=== PATIENT | male | born 1990 | race Two or more races ===

== ENCOUNTER 2018-04-22 14:35 | Emergency (ER) | payer OTHER ==
[2018-04-22 14:50] VITALS: BP 104/60; PULSE 81; TEMP 100.6; BMI 39.1
[2018-04-22] MEDS ORDERED: LIDOCAINE HCL 1%, 10 MG/ML (50 mL VIAL) SQ ONE (15:00)
[2018-04-22] MEDS ORDERED: LIDOCAINE HCL/PF 1% SDV 5ML VIAL ONE ×2 (15:11→15:14)
--- NOTE | 2018-04-22 15:42 | PDOC ---
History of Present Illness - General Chief Complaint: Abscess Boil Stated Complaint: PAIN UNDER HISLEFT ARM /FEVER - History of Present Illness Initial Comments: 28-year-old male without comorbidities presents for evaluation of left axillary painful mass 2 days. He has no systemic symptoms. 04/22/18 15:36 Past History - Past Medical History Allergies/Adverse Reactions: Allergies Allergy/AdvReac Type Severity Reaction Status Date / Time No Known Allergies Allergy Verified 04/22/18 14:53 Home Medications: Ambulatory Orders Cephalexin [Keflex] 500 mg PO QID #40 capsule 04/22/18 Cephalexin [Keflex] 500 mg PO QID #40 capsule 04/22/18 Ibuprofen [Motrin -] 600 mg PO TID #30 tablet 04/22/18 Ibuprofen [Motrin -] 600 mg PO TID #30 tablet 04/22/18 Sulfamethoxazole/Trimethoprim [Bactrim Ds -] 1 tab PO BID #14 tablet 04/22/18 Sulfamethoxazole/Trimethoprim [Bactrim Ds -] 1 tab PO BID #14 tablet 04/22/18 COPD: No DVT: No - Immunization History Immunization Up to Date: Yes - Suicide/Smoking/Psychosocial Hx Smoking History: Never smoked Information on smoking cessation initiated: No Hx Alcohol Use: No Drug/Substance Use Hx: No Substance Use Type: None Review of Systems - Review of Systems Integumentary: Yes: See HPI, Lesions All Other Systems: Reviewed and Negative *Physical Exam - Vital Signs Last Vital Signs Temp Pulse Resp BP Pulse Ox 100.6 F H 81 16 104/60 98 04/22/18 14:45 04/22/18 14:45 04/22/18 14:45 04/22/18 14:45 04/22/18 14:45 - Physical Exam Comments: There is a large area about 5 cm in circumference of erythema induration warmth and associated tenderness with a central point about 2 cm of focal fluctuance. In the left axilla. There is mild axillary adenopathy upper Eckstrom E compartments are soft and nontender and no gross sensorimotor deficits in the left upper extremity. 04/22/18 15:38 ED Treatment Course - Medications Given in the ED: ED Medications Discontinued Medications Generic Name Dose Route Start Last Admin Trade Name Freq PRN Reason Stop Dose Admin Lidocaine HCl 20 ml 04/22/18 15:00 04/22/18 15:12 Xylocaine 1% SQ 04/22/18 15:01 20 ml ONCE ONE Administration Medical Decision Making - Medical Decision Making 04/22/18 15:42 Under aseptic technique 20 mL of 1% lidocaine without epinephrine was injected around the area of erythema and centrally in the area fluctuance. After appropriate anesthesia, an 11 blade was used to make a 1 cm incision in the area fluctuance. The wound was deloculated and cultured. Thoroughly irrigated. Packed with quarter inch iodoform. A dry sterile dressing was placed. This was tolerated well. Post procedure instructions were given. *DC/Admit/Observation/Transfer Diagnosis at time of Disposition: Abscess - Discharge Dispostion Disposition: HOME Condition at time of disposition: Stable Decision to Admit order: No - Referrals Referrals: Abraham Hurt MD [Staff Physician] - - Patient Instructions Printed Discharge Instructions: DI for Incision and Drainage of a Skin Abscess Additional Instructions: Return to the emergency room should you its increased pain. Otherwise take the antibiotics as directed as well as the anti-inflammatory for pain control and return to the emergency room in 48 hours for packing removal and wound check. You also have the option to follow-up with the general surgeon which I recommended for you. Again return to the emergency room in 48 hours for packing removal and wound check - Post Discharge Activity Forms/Work/School Notes: Back to Work
== END 2018-04-22 15:53 | disposition home or self-care (01) ==
LOC: JERFT 14:35
PROC: 0X950ZZ Drainage of Left Axilla, Open Approach (ICD-10-PCS; principal; 2018-04-22)
DX: L02.412 Cutaneous abscess of left axilla (principal)
CPT/HCPCS: 10060; 87070; 87186; 87205; 99281-25

== ENCOUNTER 2018-05-20 17:05 | Emergency (ER) | payer OTHER ==
--- NOTE | 2018-05-20 17:19 | PDOC ---
Rapid Medical Evaluation Chief Complaint: Rash Time Seen by Provider: 05/20/18 17:17 Medical Evaluation: Allergies Allergy/AdvReac Type Severity Reaction Status Date / Time No Known Allergies Allergy Verified 05/20/18 17:15 05/20/18 17:17 I have performed a brief in person evaluation of this patient. The patient presents with a CC of: Rash HPI: Pt is a 28 YO male who has had a pruritic rash x 6 days. PE: Skin: Diffuse macules with erythematous center, no signs of secondary infection. Heart: RRR Lungs: Clear MS: Moves all extremities without difficulty Neuro: Appropriate affect Psych: appropriate affect I have ordered: nothing at this time The patient will proceed to the ED for further evaluation. Discharge Disposition - Diagnosis Rash - Referrals - Patient Instructions - Post Discharge Activity
[2018-05-20 17:23] VITALS: BP 148/87; PULSE 77; TEMP 99.4; BMI 39.1
[2018-05-20] MEDS ORDERED: DEXAMETHASONE LIQUID 0.5 MG/5 ML 240 ML BULK BOTTLE PO ONE (17:37)
[2018-05-20] MEDS ORDERED: DEXAMETHASONE SOD PHOSPHATE 10 MG/1 ML VIAL ONE (17:39)
--- NOTE | 2018-05-20 17:51 | PDOC ---
History of Present Illness - General Chief Complaint: Rash Stated Complaint: RASH Time Seen by Provider: 05/20/18 17:17 - History of Present Illness Initial Comments: 28-year-old male without comorbidities presents for evaluation of rash without any other associated symptoms 5 days. 05/20/18 17:48 Past History - Past Medical History Allergies/Adverse Reactions: Allergies Allergy/AdvReac Type Severity Reaction Status Date / Time No Known Allergies Allergy Verified 05/20/18 17:15 Home Medications: Ambulatory Orders NK [No Known Home Medication] 05/20/18 COPD: No DVT: No Dementia: No - Immunization History Immunization Up to Date: Yes - Suicide/Smoking/Psychosocial Hx Smoking History: Never smoked Have you smoked in the past 12 months: No Information on smoking cessation initiated: No Hx Alcohol Use: No Drug/Substance Use Hx: No Substance Use Type: None Review of Systems - Review of Systems Integumentary: Yes: See HPI, Pruritus, Rash All Other Systems: Reviewed and Negative *Physical Exam - Vital Signs Last Vital Signs Temp Pulse Resp BP Pulse Ox 99.4 F 77 16 148/87 97 05/20/18 17:15 05/20/18 17:15 05/20/18 17:15 05/20/18 17:15 05/20/18 17:15 - Physical Exam Comments: HEAD: NC/AT EYES: Conjuntiva clear Ears: Canals and TM's normal NOSE: No d/c THROAT: Moist mucous membrances, oral pharanx clear, uvula midline NECK: Supple without adenopathy CARDIAC: S1 S2 LUNGS: CTA Full and Equal breath sounds ABDOMEN: Soft NT ND MS: Full ROM in all joints without edema NEUROLOGIC: No gross sensory or motor deficits, NVID SKIN: Normal color and temperature there is a diffuse vesicular rash on the torso abdomen chest and I lateral legs as well as the scalp with covering eschar no open vesicles no indication of secondary infection 05/20/18 17:48 ED Treatment Course - Medications Given in the ED: ED Medications Discontinued Medications Generic Name Dose Route Start Last Admin Trade Name Freq PRN Reason Stop Dose Admin Dexamethasone 10 mg 05/20/18 17:37 05/20/18 17:41 Decadron Liquid - PO 05/20/18 17:38 10 mg ONCE ONE Administration Medical Decision Making - Medical Decision Making 05/20/18 17:49 This rash appears to be Chey I will give him a dose of Decadron for itching and have him follow-up with his primary care physician. I recommended calamine lotion use at home as well as cold showers *DC/Admit/Observation/Transfer Diagnosis at time of Disposition: Rash, Varicella - Discharge Dispostion Disposition: HOME Condition at time of disposition: Stable Decision to Admit order: No - Referrals Referrals: Jacob Vivas MD [Primary Care Provider] - - Patient Instructions Additional Instructions: seguimiento con ochoa mdico de atencin primaria suha vez 2 armstrong para suha evaluacin adicional y opciones de tratamiento. l le praful suha dosis de esteroides en la alberto de emergencias, lo que debera ayudar a ochoa picazn. l puede llevar a Benadryl a casa segn las indicaciones. Tambin puede usar locin de calamina 2-3 veces al da para picazn. Remedio fiona todas las duchas duchas calientes aumentarn ochoa picazn regresar a la alberto de emergencias si los sntomas empeoran o no se resuelven Print Language: SPA - Post Discharge Activity
== END 2018-05-20 17:52 | disposition home or self-care (01) ==
LOC: JERFT 17:05
DX: B01.9 Varicella without complication (principal)
CPT/HCPCS: 99281-25

== ENCOUNTER 2018-09-30 18:23 | Emergency (ER) | payer OTHER ==
[2018-09-30 18:39] VITALS: BP 149/49; PULSE 69; TEMP 98.3; BMI 36.0
--- NOTE | 2018-09-30 18:39 | PDOC ---
Rapid Medical Evaluation Time Seen by Provider: 09/30/18 18:34 Medical Evaluation: Allergies Allergy/AdvReac Type Severity Reaction Status Date / Time No Known Allergies Allergy Verified 05/20/18 17:15 09/30/18 18:34 I have performed a brief in-person evaluation of this patient. The patient presents with a chief complaint of: 1 month of a diffuse itchy rash all over the body, says that his doctor found something in his liver and he was referred for a ct 5 MONTHS AGO but he never went. Also c/o 2 weeks of intermittent RUQ pain and stomach "acid" Pertinent physical exam findings: Diffuse hyperpigmented macules on upper extremtiies, epigastric/mild RUQ pain I have ordered the following: CBC, CMP, UA, lipase The patient will proceed to the ED for further evaluation. Discharge Disposition - Diagnosis Rash Abdominal pain Qualifiers: Abdominal location: right upper quadrant Qualified Code(s): R10.11 - Right upper quadrant pain - Referrals - Patient Instructions - Post Discharge Activity
--- NOTE | 2018-09-30 19:57 | PDOC ---
*Physical Exam - Vital Signs Last Vital Signs Temp Pulse Resp BP Pulse Ox 98.3 F 69 18 149/49 L 99 09/30/18 18:35 09/30/18 18:35 09/30/18 18:35 09/30/18 18:35 09/30/18 18:35 Medical Decision Making - Medical Decision Making 09/30/18 19:57 Patient seen by the advanced practice provider under my direct supervision. Ancillary testing reviewed as necessary. I agree with plan as outlined by the advanced practice provider. *DC/Admit/Observation/Transfer Diagnosis at time of Disposition: Rash Abdominal pain Qualifiers: Abdominal location: right upper quadrant Qualified Code(s): R10.11 - Right upper quadrant pain - Referrals Referrals: ON STAFF,NOT [Primary Care Provider] - - Patient Instructions - Post Discharge Activity
--- NOTE | 2018-09-30 20:02 | PDOC ---
History of Present Illness - General Chief Complaint: Pain, Acute Stated Complaint: Allergic Reaction Time Seen by Provider: 09/30/18 18:34 History Source: Patient Exam Limitations: Language Barrier (encounter using [facility] ) - History of Present Illness Initial Comments: 09/30/18 20:45 28 year old male Complaining of itchy rash to body for the last 3 months. Patient reports that he followed up with this primary doctor who sent some labs which shows increase in liver test. Patient reports for the last 2 weeks he's been having epigastric pain, acid reflux worse at night and with laying down. Denies fevers/chills/nausea, vomiting, diarrhea, urinary symptoms. Past History - Past Medical History Allergies/Adverse Reactions: Allergies Allergy/AdvReac Type Severity Reaction Status Date / Time No Known Allergies Allergy Verified 05/20/18 17:15 Home Medications: Ambulatory Orders Calamine 8% Topical Lotion - 1 applic TP BID PRN #1 bottle 09/30/18 Ranitidine HCl [Zantac] 150 mg PO BIDAC #30 tablet 09/30/18 COPD: No DVT: No Dementia: No - Immunization History Immunization Up to Date: Yes - Suicide/Smoking/Psychosocial Hx Smoking History: Never smoked Have you smoked in the past 12 months: No Hx Alcohol Use: No Drug/Substance Use Hx: No Substance Use Type: None Review of Systems - Review of Systems Able to Perform ROS?: Yes Is the patient limited Italian proficient: No Constitutional: No: Symptoms Reported, See HPI, Chills, Diaphoresis, Fever, Loss of Appetite, Malaise, Night Sweats, Weakness, Weight Stable, Unintentional Wgt. Loss, Unexplained wgt Loss, Other ABD/GI: Yes: Abdominal cramping Integumentary: Yes: Pruritus, Rash *Physical Exam - Vital Signs Last Vital Signs Temp Pulse Resp BP Pulse Ox 98.3 F 69 18 149/49 L 99 09/30/18 18:35 09/30/18 18:35 09/30/18 18:35 09/30/18 18:35 09/30/18 18:35 - Physical Exam General Appearance: Yes: Appropriately Dressed Respiratory/Chest: positive: Lungs Clear, Normal Breath Sounds Cardiovascular: positive: Regular Rhythm, Regular Rate Gastrointestinal/Abdominal: positive: Normal Bowel Sounds, Tender (epigastric and right upper quadrant.), Soft Musculoskeletal: positive: Normal Inspection. negative: CVA Tenderness Extremity: positive: Normal Capillary Refill, Normal Inspection, Normal Range of Motion Integumentary: positive: Other (patient has multiple bite malone f from torso to legs in multiple Stages of healing. Some are macular papular in appearance). negative: Mottled, Petechiae, Swelling, Ecchymosis, Bruising Neurologic: positive: Fully Oriented, Alert Moderate Sedation - Procedure Monitoring Vital Signs: Procedure Monitoring Vital Signs Temperature 98.3 F 09/30/18 18:35 Pulse Rate 69 09/30/18 18:35 Respiratory Rate 18 09/30/18 18:35 Blood Pressure 149/49 L 09/30/18 18:35 O2 Sat by Pulse Oximetry (%) 99 09/30/18 18:35 ED Treatment Course - LABORATORY CBC & Chemistry Diagram: 09/30/18 19:57 09/30/18 20:00 Progress Note - Progress Note Progress Note: Abdominal pain: P: Labs UA Abdominal ultrasound: Negative Outpatient GI follow-up Zantac and Maalox Pruritic Rash p: Calamine lotion. Outpatient dermatology follow up *DC/Admit/Observation/Transfer Diagnosis at time of Disposition: Rash Abdominal pain Qualifiers: Abdominal location: right upper quadrant Qualified Code(s): R10.11 - Right upper quadrant pain Gastritis Qualifiers: Gastritis type: unspecified gastritis Chronicity: acute Gastritis bleeding: without bleeding Qualified Code(s): K29.00 - Acute gastritis without bleeding - Discharge Dispostion Disposition: HOME - Prescriptions Prescriptions: Calamine 8% Topical Lotion - 1 applic TP BID PRN #1 bottle PRN Reason: For Itching Ranitidine HCl [Zantac] 150 mg PO BIDAC #30 tablet - Referrals Referrals: ON STAFF,NOT [Primary Care Provider] - Magi Asif MD [Staff Physician] - Call tomorrow Cristobal Cook MD [Staff Physician] - Call tomorrow - Patient Instructions Printed Discharge Instructions: DI for Abdominal Pain-Adult Additional Instructions: drink plenty of fluids follow up with dermatology for the rash. apply Calamine lotion to the body for itching. You may also take Benadryl every 8 hours as needed for itching. Please take Zantac as directed for acid reflux. Follow up with gastroenterology. Return to the emergency room if symptoms worsen. - Post Discharge Activity Forms/Work/School Notes: Back to Work
[2018-09-30 20:06] LABS: HEMATOCRIT 41.2 % (35.4-49); HEMOGLOBIN 14.1 GM/dL (11.7-16.9); LYMPH % 26.7 % (8-40); MCHC 34.2 g/dl (32.0-35.9); MEAN CELL VOLUME 84.8 fl (80-96); MEAN PLT VOLUME 8.2 fl (7.5-11.1); MONO % 7.7 % (3.8-10.2); NEUT % 62.6 % (42.8-82.8); PLATELET COUNT 269 K/MM3 (134-434); RBC 4.85 M/mm3 (4.00-5.60); RDW 14.4 % (11.9-15.9); WHITE BLOOD COUNT 7.4 K/mm3 (4.0-10.0)
[2018-09-30] MEDS ORDERED: RANITIDINE HCL 150 MG TABLET (FP) PO ONE (20:19)
[2018-09-30] MEDS ORDERED: MAG HYDROX/AL HYDROX/SIMETH 30 ML UNIT-DOSE CUP PO ONE (20:19)
[2018-09-30 20:27] LABS: INR 0.98 (0.83-1.09); PROTHROMBIN TIME (PATIENT) 11.6 SEC (9.7-13.0)
[2018-09-30 20:42] LABS: ALBUMIN 3.8 g/dl (3.4-5.0); ALK PHOS 101 U/L (45-117); ANION GAP 8 MMOL/L (8-16); BILIRUBIN,TOTAL 0.4 mg/dL (0.2-1); BLOOD UREA NITROGEN 12 mg/dL (7-18); CALCIUM 8.8 mg/dL (8.5-10.1); CHLORIDE 104 mmol/L (98-107); CO2 26 mmol/L (21-32); CREATININE 0.9 mg/dL (0.55-1.3); GLUCOSE,RANDOM 107 mg/dL (74-106); LIPASE 364 U/L (73-393); POTASSIUM 3.7 mmol/L (3.5-5.1); SGOT/AST 18 U/L (15-37); SGPT/ALT 35 U/L (13-61); SODIUM 138 mmol/L (136-145); TOT PROT 7.8 g/dl (6.4-8.2)
[2018-09-30] MEDS ORDERED: RANITIDINE HCL 150 MG TABLET (FP) ONE (20:46)
[2018-09-30] MEDS ORDERED: MAG HYDROX/AL HYDROX/SIMETH 30 ML UNIT-DOSE CUP ONE (20:46)
[2018-09-30 21:03] LABS: URINE APPEARANCE CLEAR; URINE BILIRUBIN NEGATIVE (<2.0 mg/dL); URINE COLOR YELLOW; URINE GLUCOSE (UA) NEGATIVE (NEGATIVE); URINE KETONE NEGATIVE (NEGATIVE); URINE LEUK ESTERASE NEGATIVE (NEGATIVE); URINE NITRITE NEGATIVE (NEGATIVE); URINE PROTEIN 1+ (NEGATIVE); URINE UROBILINOGEN NEGATIVE mg/dL (0.2-1.0)
[2018-09-30 21:23] LABS: EPI CELLS RARE /HPF (FEW); URINE MUCUS RARE
== END 2018-09-30 23:02 | disposition home or self-care (01) ==
LOC: JER 18:23
DX: K29.70 Gastritis, unspecified, without bleeding (principal); R21 Rash and other nonspecific skin eruption
CPT/HCPCS: 36415; 76705-TC; 80053; 81003; 81015; 83690; 85025; 85610; 86850; 86900; 86901; 99283-25

== ENCOUNTER 2021-08-22 14:51 | Emergency (ER) | payer OTHER ==
[2021-08-22 15:31] VITALS: BP 150/97; PULSE 75; TEMP 99.3; BMI 25.0
[2021-08-22] MEDS ORDERED: AZITHROMYCIN 500 MG TABLET PO ONE (18:28)
[2021-08-22] MEDS ORDERED: DEXAMETHASONE LIQUID 0.5 MG/5 ML PO ONE (18:28)
[2021-08-22] MEDS ORDERED: DEXAMETHASONE SOD PHOSPHATE 10 MG/1 ML VIAL ONE (18:32)
[2021-08-22] MEDS ORDERED: AZITHROMYCIN 250 MG TABLET ONE ×2 (18:32→18:47)
== END 2021-08-22 19:16 | disposition home or self-care (01) ==
LOC: JER 14:51
DX: J10.1 Influenza due to other identified influenza virus with other respiratory manifestations (principal)
CPT/HCPCS: 71046-TC-FY; 87804; 99284-25; C9803; U0003; U0005

== ENCOUNTER 2023-08-28 12:19 | Emergency (ER) | payer OTHER ==
[2023-08-28 12:30] VITALS: TEMP 99.2; BMI 36.3
[2023-08-28] MEDS ORDERED: hydrALAZINE HCL 10 MG TABLET PO ONE (13:26)
[2023-08-28] MEDS ORDERED: ACETAMINOPHEN 1000 MG/100 ML BAG IVPB ONE (13:26)
[2023-08-28] MEDS ORDERED: hydrALAZINE HCL 10 MG TABLET ONE (13:41)
[2023-08-28] MEDS ORDERED: ACETAMINOPHEN INJECTION 100 ML IVPB ONE (13:41)
[2023-08-28 13:47] LABS: BASO % 0.7 % (0-2.0); EOS % 0.2 % (0-4.5); HEMATOCRIT 41.9 % (35.4-49); LYMPH % 22.6 % (8-40); MCH 29.6 pg (25.7-33.7); MCHC 33.4 g/dl (32.0-35.9); MEAN CELL VOLUME 88.6 fl (80-96); MONO % 7.5 % (3.8-10.2); PLATELET COUNT 234 10^3/uL (134-434); RBC 4.73 M/mm3 (4.00-5.60); RDW 14.6 % (11.9-15.9); WHITE BLOOD COUNT 7.3 K/mm3 (4.0-10.0)
[2023-08-28] MEDS ORDERED: MAG HYDROX/AL HYDROX/SIMETH 30 ML UNIT-DOSE CUP PO ONE (13:47)
[2023-08-28] MEDS ORDERED: MAG HYDROX/AL HYDROX/SIMETH 30 ML UNIT-DOSE CUP ONE (13:57)
[2023-08-28 14:03] LABS: POTASSIUM 3.7 mmol/L (3.5-5.1)
[2023-08-28 14:04] LABS: ALBUMIN 4.2 g/dl (3.4-5.0)
[2023-08-28 14:08] LABS: CREATININE 0.9 mg/dL (0.55-1.3)
[2023-08-28 14:09] LABS: TOT PROT 8.2 g/dl (6.4-8.2)
[2023-08-28 15:29] VITALS: BP 153/96; PULSE 60; RESP 16
== END 2023-08-28 18:18 | disposition home or self-care (01) ==
LOC: JER 12:19
PROC: 3E033NZ Introduction of Analgesics, Hypnotics, Sedatives into Peripheral Vein, Percutaneous Approach (ICD-10-PCS; principal; 2023-08-28)
DX: R07.9 Chest pain, unspecified (principal); R06.02 Shortness of breath; R51.9 Headache, unspecified; I16.0 Hypertensive urgency
CPT/HCPCS: 36415; 70450-TC; 80053; 84484; 85025; 93005; 93010; 99285-25